=== PATIENT | female | born 1935 | race Caucasian/White ===

== ENCOUNTER 2016-12-10 08:03 | Emergency (ER) | payer MEDICARE, OTHER ==
[2016-12-10] MEDS ORDERED: NITROGLYCERIN 0.4 MG SUBL TABLET As Ordered ONE (08:21)
[2016-12-10] MEDS ORDERED: ASPIRIN 81 MG CHEW TABLET As Ordered ONE (08:21)
[2016-12-10] MEDS ORDERED: ONDANSETRON 4MG/2ML VIAL (J2405) As Ordered ONE (08:25)
[2016-12-10] MEDS ORDERED: MORPHINE 2 MG/ML 1ML SYRINGE As Ordered ONE (08:25)
[2016-12-10 08:36] LABS: BASO % 0.7 % (0.0-1.0); EOS # 0.4 K/mm3 (0.0-0.50); EOS % 8.4 % (0.0-3.0); LARGE UNSTAINED CELL # 0.2 K/mm3 (0.0-0.4); LARGE UNSTAINED CELL % 3.8 % (0.0-4.0); LYMPH # 1.8 K/mm3 (1.5-4.5); LYMPH % 36.7 % (24.0-44.0); MEAN CORPUSCULAR HEMOGLOBIN 29.7 pg (27.0-33.0); MEAN CORPUSCULAR HGB CONC 32.3 g/dl (32.0-36.5); MEAN CORPUSCULAR VOLUME 91.9 fl (80.0-96.0); MONO # 0.4 K/mm3 (0.0-0.8); MONO % 7.5 % (0.0-5.0); NEUTROPHILS # 2.1 K/mm3 (1.8-7.7); NEUTROPHILS % 43.1 % (36.0-66.0); PLATELET COUNT, AUTOMATED 227 k/mm3 (150-450); RED CELL DISTRIBUTION WIDTH 12.5 % (11.5-14.5); WHITE BLOOD COUNT 4.8 K/mm3 (4.0-10.0)
[2016-12-10] MEDS ORDERED: NITROGLYCERIN 2% OINT 1 GM *U/D* PKT As Ordered ONE (08:36)
[2016-12-10 08:40] LABS: INR 0.8
[2016-12-10 09:02] LABS: ANION GAP 7 MEQ/L (8-16); BLOOD UREA NITROGEN 21 MG/DL (7-18); CALCIUM LEVEL 9.3 MG/DL (8.8-10.2); CARBON DIOXIDE LEVEL 31 MEQ/L (21-32); CHLORIDE LEVEL 108 MEQ/L (98-107); CREATININE FOR GFR 0.71 MG/DL (0.55-1.02); GLOMERULAR FILTRATION RATE > 60.0 (>39); GLUCOSE, FASTING 111 MG/DL (83-110); POTASSIUM SERUM 4.1 MEQ/L (3.5-5.1); SODIUM LEVEL 146 MEQ/L (136-145)
[2016-12-10] MEDS ORDERED: HEPARIN SOD (PORCINE) 5000 UNITS/ML VIAL As Ordered ONE (09:07)
[2016-12-10] MEDS ORDERED: CLOPIDOGREL 75 MG TAB As Ordered ONE (09:08)
[2016-12-10] MEDS ORDERED: HEPARIN 25,000 UNITS/250 ML D5W BAG (100 UNITS/ML) As Ordered ONE (09:08)
--- NOTE | 2016-12-10 09:22 | REP ---
Portable chest x-ray: Single view. History: Chest pain. Comparison chest x-ray May 24, 2011. Findings: Mild cardiomegaly is again observed. Left hemidiaphragm remains slightly elevated. Prior sternotomy wires are seen along with EKG monitoring electrodes. The lungs are well inflated and clear. Pulmonary vasculature is not increased. Pleural angles are sharp. There is no evidence of pleural effusion or pulmonary edema. Diffuse osteopenia is noted. Impression: Mild cardiomegaly. Prior sternotomy. Otherwise no acute disease. Signed by Andrey Benton MD 12/10/2016 01:17 P
--- NOTE | 2016-12-10 10:25 | EDDOCDS ---
Nurse's Notes [facility] Name: Mackenzie Toribio Age: 81 yrs Sex: Female : 1935 Arrival Date: 12/10/2016 Time: 08:03 Bed 10 Private MD: Kalie Ferrer Diagnosis: Unstable angina Presentation: 12/10 08:13 Presenting complaint: Patient states: woke with chest pressure at 6AM. Aspirin was not kr3 taken prior to arrival. Adult Sepsis Screening: The patient does not have new or worsening altered mentation. Patient's respiratory rate is less than 22. Systolic blood pressure is greater than 100. Patient has a qSOFA score of 0- Negative Sepsis Screen. Suicide/Homicide risk assessment- the patient denies having any suicidal and/or homicidal ideations and does not present with any other emotional, behavioral or mental health complaints. Status: Patient is not a repair servicer or dependent. Transition of care: patient was not received from another setting of care. 08:13 Acuity: CHANTAL Level 2 kr3 08:13 Method Of Arrival: Wheelchair kr3 08:19 Red Flag criteria, patient assessed and taken directly to a bed. kr3 Triage Assessment: 08:17 General: Appears in no apparent distress, comfortable, Behavior is cooperative. Pain: kr3 Pain currently is 3 out of 10 on a pain scale. At worst was 7 out of 10 on a pain scale. Pain: Aggravated by increased activity. The patient is triaged at the bedside. See Assessment in Nurses Notes section of ED record. Neurological: Level of Consciousness is awake, alert. Cardiovascular: Chest pain is described as mild, radiates Does not radiate. episodes are continuous began 2 hours prior to arrival. Respiratory: Respiratory effort is even, unlabored. Derm: Skin is pink, warm & dry. Historical: - Allergies: no known allergies; - Home Meds: 1. aspirin 81 mg Oral tab 1 tab once daily (Last dose: 12/09/2016) 2. atenolol 25 mg Oral tab 1 tab once daily 3. atorvastatin 40 mg oral tab 1 tab once daily 4. pantoprazole 20 mg oral TbEC 1 tab once daily 5. fosinopril 40 mg oral tab 1 tab once daily 6. multivitamin oral cap daily 7. Fish Oil 1,000 mg Oral cap daily 8. calcium daily 9. Nitrostat Unknown SL (Last dose: 12/10/2016) - PMHx: Heart Attack; Hypertension; High Cholesterol; - PSHx: cardic catherization; - Social history: Smoking status: Patient states was never smoker of tobacco. No barriers to communication noted, The patient speaks fluent Liberian, Speaks appropriately for age. - Family history: Not pertinent. - : The pt / caregiver states he / she is not on anticoagulants. Home medication list is obtained from the patient. - Exposure Risk Screening:: None identified. Screenin:45 Screening information is obtained from the patient. Fall risk: No risks identified. mlb1 Assistance ADL's: requires no assistance with activities of daily living. Abuse/DV Screen: The patient / caregiver reports he/she is: not in a situation that causes fear, pain or injury. Nutritional screening: No deficits noted. Advance Directives: Currently, there is a health care proxy, Dao Toribio (). There is an active DNR order but there is no copy available at this time. home support is adequate. Assessment: 08:23 General: Appears in no apparent distress, comfortable, Behavior is appropriate for age, mlb1 cooperative. Pain: Location: mid-sternal area Pain currently is 3 out of 10 on a pain scale. Cardiovascular: Rhythm is sinus rhythm. Respiratory: Airway is patent Respiratory effort is even, unlabored, Breath sounds are clear bilaterally. Derm: No deficits noted. 08:30 General: Appears in no apparent distress, comfortable, Behavior is appropriate for age, mlb1 cooperative. Pain: Denies pain. Cardiovascular: Rhythm is sinus rhythm. Respiratory: No deficits noted. Derm: No deficits noted. 09:30 General: Appears in no apparent distress, comfortable, Behavior is appropriate for age, mlb1 cooperative. Pain: Denies pain. Respiratory: Airway is patent Respiratory effort is even, unlabored, Breath sounds are clear bilaterally. Derm: No deficits noted. 10:18 General: Appears in no apparent distress, comfortable, Behavior is appropriate for age, mlb1 cooperative. Pain: Denies pain. Neurological: No deficits noted. Cardiovascular: Rhythm is sinus rhythm No ectopy. Respiratory: Airway is patent Respiratory effort is even, unlabored. Derm: Skin is pink, warm & dry. normal. Vital Signs: 08:17 BP 149 / 65; Pulse 64; Resp 16; Pulse Ox 97% on R/A; Weight 46.27 kg (R); Height 4 ft. kr3 11 in. (149.86 cm); 08:18 BP 149 / 65 (auto/); mlb1 08:18 Pulse 62 MON; mlb1 08:21 Temp 97.1(O); cmb 08:27 BP 116 / 56 (auto/); mlb1 08:27 Pulse 68 MON; Pulse Ox 95% ; mlb1 08:30 BP 116 / 56; Pulse 66; Pain 0/10; mlb1 08:33 BP 132 / 61 (auto/); mlb1 08:34 Pulse 62 MON; Pulse Ox 100% ; mlb1 08:48 BP 140 / 68 (auto/); mlb1 08:49 Pulse 60 MON; Pulse Ox 100% ; mlb1 09:05 BP 133 / 61 (auto/); mlb1 09:06 Pulse 64 MON; Pulse Ox 100% ; mlb1 09:18 BP 153 / 68 (auto/); mlb1 09:18 Pulse 68 MON; Pulse Ox 99% ; mlb1 09:33 BP 166 / 79 (auto/); mlb1 09:34 Pulse 62 MON; Pulse Ox 100% ; mlb1 09:34 BP 124 / 57; Pulse 62; Resp 16; Temp 97.3(O); Pulse Ox 100% on 2 lpm NC; Pain 0/10; mlb1 09:48 BP 129 / 75 (auto/); mlb1 09:48 Pulse 62 MON; Pulse Ox 100% ; mlb1 10:02 BP 146 / 66 (auto/); mlb1 10:03 BP 132 / 61 (auto/); mlb1 10:03 Pulse 64 MON; Pulse Ox 100% ; mlb1 10:04 Pulse 64 MON; Pulse Ox 100% ; mlb1 08:17 Body Mass Index 20.60 (46.27 kg, 149.86 cm) kr3 Vitals: 08:17 Log In Time: December 10, 2016 at 08:15. kr3 ED Course: 08:05 Patient visited by William Shepherd. mm15 08:05 Kalie Ferrer is Private Physician. mm15 08:05 Patient moved to Waiting mm15 08:09 Patient moved to 10 kr3 08:11 [facility] jo4 08:11 Jacquelyn Hernandez MD is Attending Physician. jo4 08:13 Patient visited by Jacquelyn Hernandez MD. sd1 08:14 Triage Initiated kr3 08:19 Patient visited by Blessing Schreiber. cmb 08:19 EKG done. (by ED staff). Reviewed by Jacquelyn Hernandez MD. cmb 08:20 B-Type Natiuretic Peptide Sent. mlb1 08:20 Basic Metabolic Profile Sent. mlb1 08:20 CBC with Diff Sent. mlb1 08:20 Cardiac Injury Profile Sent. mlb1 08:20 Prothrombin Time Profile\E\INR Sent. mlb1 08:22 Patient visited by Blessing Schreiber. cmb 08:24 The patient / caregiver is instructed regarding the plan of care and ED course. mlb1 Accompanied by Significant Other, Patient has correct armband on for positive identification. Placed in gown. Bed in low position. Call light in reach. Side rails up X2. front desk monitor on. Pulse ox on. NIBP on. 08:24 Inserted saline lock: 20 gauge in right antecubital area and blood collected. The mlb1 patient tolerated the procedure well. 08:30 Patient visited by Angel Ruggiero, RN. mlb1 08:33 EKG done. (by ED staff). Reviewed by Jacquelyn Hernandez MD. dem1 08:34 Patient visited by Arvin Serrano. dem1 08:46 Patient visited by Angel Ruggiero, RN. mlb1 08:46 No procedures done that require assistance. mlb1 08:56 EKG done. (by ED staff). Reviewed by Jacquelyn Hernandez MD. cmb 08:58 Patient visited by Blessing Schreiber. cmb 09:04 [facility] Payment Agreement was scanned into [employer] and attached to record. jp5 09:06 Inserted saline lock: 18 gauge in left antecubital area The patient tolerated the mlb1 procedure well. 09:31 Patient visited by Angel Ruggiero, RN. mlb1 09:36 portable chest Returned. EDMS Administered Medications: 08:22 Drug: Aspirin 324 mg [aspirin 81 mg chewable tablet (4 tabs)] Route: PO; mlb1 08:23 Drug: Nitrostat 0.4 mg [Nitrostat 0.4 mg sublingual tablet (1 tabs)] Route: Sublingual; b1 08:30 Follow up: BP 116 / 56; Pulse 66 bpm; Pain 0/10 Adult [facility] 08:29 Drug: morphine 2 mg [morphine 2 mg/mL intravenous cartridge (1 mL)] Route: IVP; Site: [facility] right antecubital; 08:29 Drug: Ondansetron 4 mg [ondansetron HCl 2 mg/mL intravenous solution (2 mL)] Route: mlb1 IVP; Site: right antecubital; 08:41 Drug: Nitro-Bid 1 inches [Nitro-Bid 2 % transdermal ointment (1 inches)] Route: mlb1 Transdermal; Site: anterior chest wall; 09:21 Drug: Plavix - Clopidogrel 300 mg [clopidogrel 75 mg tablet (4 tabs)] Route: PO; [facility] 09:22 Drug: heparin (Thrombolytic Protocol, 60 units/kg)) 2776.2 units [heparin (porcine) mlb1 5,000 unit/mL injection solution (0.555 mL)] {Co-Signature: hs1 (Johnna Landis RN).} Route: IVP; Site: right antecubital; 09:22 Drug: heparin (Thrombolytic Protocol, 12 units/kg/hr)) 28155 units [heparin (porcine) mlb1 25,000 unit/250 mL (100 unit/mL) in dextrose 5 % IV] {Co-Signature: hs1 (Johnna Landis RN).} Route: IV; Rate: 12 units/kg/hr; Site: right antecubital; Order Results: Lab Order: B-Type Natiuretic Peptide; SPEC'M 12/10/16 08:18 Test: BRAIN NATRIURETIC PEPTIDE; Value: 161; Range: <100; Abnormal: Above high normal; Units: PG/ML; Status: F Lab Order: Basic Metabolic Profile; SPEC'M 12/10/16 08:18 Test: GLUCOSE, FASTING; Value: 111; Range: 83-110; Abnormal: Above high normal; Units: MG/DL; Status: F Test: BLOOD UREA NITROGEN; Value: 21; Range: 7-18; Abnormal: Above high normal; Units: MG/DL; Status: F Test: CREATININE FOR GFR; Value: 0.71; Range: 0.55-1.02; Units: MG/DL; Status: F Test: GLOMERULAR FILTRATION RATE; Value: > 60.0; Range: >39; Status: F Test: SODIUM LEVEL; Value: 146; Range: 136-145; Abnormal: Above high normal; Units: MEQ/L; Status: F Test: POTASSIUM SERUM; Value: 4.1; Range: 3.5-5.1; Units: MEQ/L; Status: F Test: CHLORIDE LEVEL; Value: 108; Range: 98-107; Abnormal: Above high normal; Units: MEQ/L; Status: F Test: CARBON DIOXIDE LEVEL; Value: 31; Range: 21-32; Units: MEQ/L; Status: F Test: ANION GAP; Value: 7; Range: 8-16; Abnormal: Below low normal; Units: MEQ/L; Status: F Test: CALCIUM LEVEL; Value: 9.3; Range: 8.8-10.2; Units: MG/DL; Status: F Test Note: ; Units are mL/min/1.73 m2 Chronic Kidney Disease Staging per NKF: Stage I & II GFR >=60 Normal to Mildly Decreased Stage III GFR 30-59 Moderately Decreased Stage IV GFR 15-29 Severely Decreased Stage V GFR <15 Very Little GFR Left ESRD GFR <15 on SPINDLE CARVER Lab Order: CBC with Diff; SPEC'M 12/10/16 08:18 Test: WHITE BLOOD COUNT; Value: 4.8; Range: 4.0-10.0; Units: K/mm3; Status: F Test: RED BLOOD COUNT; Value: 4.06; Range: 4.00-5.40; Units: M/mm3; Status: F Test: HEMOGLOBIN; Value: 12.1; Range: 12.0-16.0; Units: g/dl; Status: F Test: HEMATOCRIT; Value: 37.3; Range: 36.0-47.0; Units: %; Status: F Test: MEAN CORPUSCULAR VOLUME; Value: 91.9; Range: 80.0-96.0; Units: fl; Status: F Test: MEAN CORPUSCULAR HEMOGLOBIN; Value: 29.7; Range: 27.0-33.0; Units: pg; Status: F Test: MEAN CORPUSCULAR HGB CONC; Value: 32.3; Range: 32.0-36.5; Units: g/dl; Status: F Test: RED CELL DISTRIBUTION WIDTH; Value: 12.5; Range: 11.5-14.5; Units: %; Status: F Test: PLATELET COUNT, AUTOMATED; Value: 227; Range: 150-450; Units: k/mm3; Status: F Test: NEUTROPHILS %; Value: 43.1; Range: 36.0-66.0; Units: %; Status: F Test: LYMPH %; Value: 36.7; Range: 24.0-44.0; Units: %; Status: F Test: MONO %; Value: 7.5; Range: 0.0-5.0; Abnormal: Above high normal; Units: %; Status: F Test: EOS %; Value: 8.4; Range: 0.0-3.0; Abnormal: Above high normal; Units: %; Status: F Test: BASO %; Value: 0.7; Range: 0.0-1.0; Units: %; Status: F Test: LARGE UNSTAINED CELL %; Value: 3.8; Range: 0.0-4.0; Units: %; Status: F Test: NEUTROPHILS #; Value: 2.1; Range: 1.8-7.7; Units: K/mm3; Status: F Test: LYMPH #; Value: 1.8; Range: 1.5-4.5; Units: K/mm3; Status: F Test: MONO #; Value: 0.4; Range: 0.0-0.8; Units: K/mm3; Status: F Test: EOS #; Value: 0.4; Range: 0.0-0.50; Units: K/mm3; Status: F Test: BASO #; Value: 0.0; Range: 0.0-0.2; Units: K/mm3; Status: F Test: LARGE UNSTAINED CELL #; Value: 0.2; Range: 0.0-0.4; Units: K/mm3; Status: F Lab Order: Cardiac Injury Profile; SPEC'M 12/10/16 08:18 Test: CPK CREATINE PHOSPHOKINASE; Value: 88; Range: 26-192; Units: U/L; Status: F Test: CK-MB VALUE MASS; Value: 3.4; Range: 0.0-3.6; Units: NG/ML; Status: F Test: MB/CK RELATIVE INDEX; Value: 3.86; Range: < OR =4; Status: F Test Note: ; DIAGNOSIS CRITERIA MMB ng/ml Relative Index (RI) NON-AMI < or = 5 N/A TODD ZONE > 5 < or = 4 AMI > 5 > 4 Lab Order: Prothrombin Time Profile\E\INR; SPEC'M 12/10/16 08:18 Test: PROTHROMBIN TIME; Value: 11.2; Range: 12.3-14.5; Abnormal: Below low normal; Units: SECONDS; Status: F Test: INR; Value: 0.80; Status: F Test Note: ; THERAPUTIC HUMAN INR VALUES INDICATIONS NORMAL RANGES PROPHYLAXIS/TREATMENT OF: VENOUS THROMBOSIS 2.0-3.0 PULMONARY EMBOLISM 2.0-3.0 PREVENTION OF SYSTEMIC EMBOLISM FROM: TISSUE HEART VALVES 2.0-3.0 ACUTE MYOCARDIAL INFARCTION 2.0-3.0 VALVULAR HEART DISEASE 2.0-3.0 ATRIAL FIBRILLATION 2.0-3.0 MECHANICAL VALVES(HIGH RISK) 2.5-3.5 RECURRENT MYOCARDIAL INFARCTION 2.5-3.5 Lab Order: Troponin; SPEC'M 12/10/16 08:18 Test: TROPONIN I; Value: 0.42; Range: < 0.10; Abnormal: Above high normal; Units: NG/ML; Status: F Test Note: ; Troponin I Reference Interval for HOTELbeat LOCI: 99th Percentile= 0.00-0.045 ng/ml Risk Stratification: <= 0.10 ng/ml Decreased Risk for Adverse Clinical Events. 0.10-1.50 ng/ml Increased Risk for Adverse Clinical Events. Evaluation of additional criterion and/or repeat testing in 2-6 hours is suggested to rule out myocardial damage. >= 1.50 ng/ml Indicative of Myocardial Injury. Radiology Order: portable chest Test: portable chest REASON FOR EXAMINATION: Chest Pain; Portable chest x-ray: Single view.; ; History: Chest pain.; ; Comparison chest x-ray May 24, 2011.; ; Findings: Mild cardiomegaly is again observed. Left hemidiaphragm remains; slightly elevated. Prior sternotomy wires are seen along with EKG monitoring; electrodes. The lungs are well inflated and clear. Pulmonary vasculature is not; increased. Pleural angles are sharp. There is no evidence of pleural effusion; or pulmonary edema. Diffuse osteopenia is noted.; ; Impression:; ; Mild cardiomegaly. Prior sternotomy. Otherwise no acute disease.; ; ; ; ; Unreviewed; Outcome: 09:06 ER care complete, transfer ordered by Provider. sd1 10:18 Discharge Assessment: Patient awake, alert and oriented x 3. No cognitive and/or mlb1 functional deficits noted. Patient verbalized understanding of disposition instructions. patient administered narcotics - yes. Patient was admitted to the hospital or transferred to another facility. The following High Risk Discharge criteria are identified: None. [facility] to accompanying personnel Amy Richardson, Jorje Rich rotary drill operator, Transfer form completed. x-rays sent w/ patient. Condition: good. No special radiology studies were completed. Property :Personal belongings accompany Pt. 10:24 Patient left the ED. mlb1 Signatures: Dispatcher [employer] EDMS Jacquelyn Hernandez MD MD sd1 Angel Ruggiero RN RN mlb1 Za Cedeño RN RN kr3 Arvin Serrano1 Blessing Schreiber Marlynn mm15 Pilar Dixon jp5 Alicia Moreira DO DO jo4 Johnna Landis RN hs1 MTDSandra
--- NOTE | 2016-12-10 10:25 | EDDOCDS ---
Physician Documentation [facility] Name: Mackenzie Toribio Age: 81 yrs Sex: Female : 1935 Arrival Date: 12/10/2016 Time: 08:03 Bed 10 Private MD: Kalie Ferrer Disposition: 12/10/16 09:06 Transfer ordered to [facility]. Diagnosis is Unstable angina. - Reason for transfer: Higher level of care. - Accepting physician is Dr. Berman. - Condition is Stable. - Problem is new. - Symptoms have improved. Historical: - Allergies: no known allergies; - Home Meds: 1. aspirin 81 mg Oral tab 1 tab once daily (Last dose: 12/09/2016) 2. atenolol 25 mg Oral tab 1 tab once daily 3. atorvastatin 40 mg oral tab 1 tab once daily 4. pantoprazole 20 mg oral TbEC 1 tab once daily 5. fosinopril 40 mg oral tab 1 tab once daily 6. multivitamin oral cap daily 7. Fish Oil 1,000 mg Oral cap daily 8. calcium daily 9. Nitrostat Unknown SL (Last dose: 12/10/2016) - PMHx: Heart Attack; Hypertension; High Cholesterol; - PSHx: cardic catherization; - Social history: Smoking status: Patient states was never smoker of tobacco. No barriers to communication noted, The patient speaks fluent Liberian, Speaks appropriately for age. - Family history: Not pertinent. - : The pt / caregiver states he / she is not on anticoagulants. Home medication list is obtained from the patient. - Exposure Risk Screening:: None identified. Vital Signs: 12/10 08:17 BP 149 / 65; Pulse 64; Resp 16; Pulse Ox 97% on R/A; Weight 46.27 kg / 102.01 lbs (R); kr3 Height 4 ft. 11 in. (149.86 cm); 08:18 BP 149 / 65 (auto/); mlb1 08:18 Pulse 62 MON; mlb1 08:21 Temp 97.1(O); cmb 08:27 BP 116 / 56 (auto/); mlb1 08:27 Pulse 68 MON; Pulse Ox 95% ; mlb1 08:30 BP 116 / 56; Pulse 66; Pain 0/10; mlb1 08:33 BP 132 / 61 (auto/); mlb1 08:34 Pulse 62 MON; Pulse Ox 100% ; mlb1 08:48 BP 140 / 68 (auto/); mlb1 08:49 Pulse 60 MON; Pulse Ox 100% ; mlb1 09:05 BP 133 / 61 (auto/); mlb1 09:06 Pulse 64 MON; Pulse Ox 100% ; mlb1 09:18 BP 153 / 68 (auto/); mlb1 09:18 Pulse 68 MON; Pulse Ox 99% ; mlb1 09:33 BP 166 / 79 (auto/); mlb1 09:34 Pulse 62 MON; Pulse Ox 100% ; mlb1 09:34 BP 124 / 57; Pulse 62; Resp 16; Temp 97.3(O); Pulse Ox 100% on 2 lpm NC; Pain 0/10; mlb1 09:48 BP 129 / 75 (auto/); mlb1 09:48 Pulse 62 MON; Pulse Ox 100% ; mlb1 10:02 BP 146 / 66 (auto/); mlb1 10:03 BP 132 / 61 (auto/); mlb1 10:03 Pulse 64 MON; Pulse Ox 100% ; mlb1 10:04 Pulse 64 MON; Pulse Ox 100% ; mlb1 08:17 Body Mass Index 20.60 (46.27 kg, 149.86 cm) kr3 MDM: 08:11 ECG WITH READING ER PHYS+CARDIAG ordered. EDMS 08:14 Aspirin Chewable Tablet 324 mg PO once ordered. sd1 08:14 Nitrostat 0.4 mg Sublingual every 5 minutes; hold if SBP<90mmHg.Document Pain Score sd1 Response to Each Dose x3 ordered. 08:14 Varnish Thinner/Pulse Ox/q 30 min VS ordered. sd1 08:14 IV Saline Lock ordered. sd1 08:14 Rhythm Strip to chart ordered. sd1 08:14 Undress patient appropriately for examination ordered. sd1 08:15 B-Type Natiuretic Peptide Ordered. EDMS 08:15 Basic Metabolic Profile Ordered. EDMS 08:15 CBC with Diff Ordered. EDMS 08:15 Cardiac Injury Profile Ordered. EDMS 08:15 Prothrombin Time Profile\E\INR Ordered. EDMS 08:15 Troponin Ordered. EDMS 08:16 portable chest Ordered. EDMS 08:21 Repeat EKG (put time details section) ordered. sd1 08:22 morphine 2 mg IVP every 15 minutes; Document pain score/vitals after each dose (Hold if sd1 SBP < 90mmHg) x3 ordered. 08:22 Ondansetron 4 mg IVP once ordered. sd1 08:25 Oxygen 2L via NC, titrate to maintain PO >95% ordered. sd1 08:26 [facility] Order ordered. sd1 08:29 Nitro-Bid Ointment 2 % 1 inches Transdermal once ordered. sd1 08:29 Repeat EKG (put time details section) complete. jml1 08:31 ECG WITH READING ER PHYS ordered. EDMS 08:37 [facility] Order complete. jml1 09:02 heparin (Thrombolytic Protocol, 60 units/kg)) 60 units/kg IVP once; 2760units. Ensure sd1 no Lovenox in past 18hr, labs drawn ordered. 09:02 heparin (Thrombolytic Protocol, 12 units/kg/hr)) 52589 units IV at 12 units/kg/hr once; sd1 dose 550 units/hr. No Lovenox past 18hrs/ draw labs. ordered. 09:02 CBC with Diff Reviewed. sd1 09:02 Prothrombin Time Profile\E\INR Reviewed. sd1 09:04 [facility] [place] Agreement was scanned into [employer] and attached to record. jp5 09:04 Financial registration complete. jp5 09:05 Plavix - Clopidogrel 300 mg PO once ordered. sd1 09:05 Basic Metabolic Profile Reviewed. sd1 09:05 Troponin Reviewed. sd1 09:05 Cardiac Injury Profile Reviewed. sd1 09:12 B-Type Natiuretic Peptide Reviewed. sd1 Administered Medications: 08:22 Drug: Aspirin 324 mg [aspirin 81 mg chewable tablet (4 tabs)] Route: PO; mlb1 08:23 Drug: Nitrostat 0.4 mg [Nitrostat 0.4 mg sublingual tablet (1 tabs)] Route: Sublingual; mlb1 08:30 Follow up: BP 116 / 56; Pulse 66 bpm; Pain 0/10 Adult mlb1 08:29 Drug: morphine 2 mg [morphine 2 mg/mL intravenous cartridge (1 mL)] Route: IVP; Site: mlb1 right antecubital; 08:29 Drug: Ondansetron 4 mg [ondansetron HCl 2 mg/mL intravenous solution (2 mL)] Route: mlb1 IVP; Site: right antecubital; 08:41 Drug: Nitro-Bid 1 inches [Nitro-Bid 2 % transdermal ointment (1 inches)] Route: mlb1 Transdermal; Site: anterior chest wall; 09:21 Drug: Plavix - Clopidogrel 300 mg [clopidogrel 75 mg tablet (4 tabs)] Route: PO; mlb1 09:22 Drug: heparin (Thrombolytic Protocol, 60 units/kg)) 2776.2 units [heparin (porcine) mlb1 5,000 unit/mL injection solution (0.555 mL)] {Co-Signature: hs1 (Johnna Landis RN).} Route: IVP; Site: right antecubital; 09:22 Drug: heparin (Thrombolytic Protocol, 12 units/kg/hr)) 12382 units [heparin (porcine) mlb1 25,000 unit/250 mL (100 unit/mL) in dextrose 5 % IV] {Co-Signature: hs1 (Johnna Landis RN).} Route: IV; Rate: 12 units/kg/hr; Site: right antecubital; Signatures: Dispatcher [employer] EDJacquelyn Saldana MD MD sd1 Angel Ruggiero RN RN mlb1 Za Cedeño RN RN kr3 Nestor Jones Jennalee jp5 Johnna Landis RN hs1 The chart was reviewed and I authenticate all verbal orders and agree with the evaluation and treatment provided.Attachments: 09:04 [facility] Payment Agreement jp5 MTDD
--- NOTE | 2016-12-10 20:21 | ECGEPIP ---
Stationary ECG Study 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
--- NOTE | 2016-12-10 20:22 | ECGEPIP ---
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
--- NOTE | 2016-12-12 11:25 | EDDOCDS ---
Physician Documentation [facility] Name: Mackenzie Toribio Age: 81 yrs Sex: Female : 1935 Arrival Date: 12/10/2016 Time: 08:03 Bed 10 Private MD: Kalie Ferrer Disposition: 12/10/16 09:06 Transfer ordered to [facility]. Diagnosis is Unstable angina. - Reason for transfer: Higher level of care. - Accepting physician is Dr. Berman. - Condition is Stable. - Problem is new. - Symptoms have improved. Historical: - Allergies: no known allergies; - Home Meds: 1. aspirin 81 mg Oral tab 1 tab once daily (Last dose: 12/09/2016) 2. atenolol 25 mg Oral tab 1 tab once daily 3. atorvastatin 40 mg oral tab 1 tab once daily 4. pantoprazole 20 mg oral TbEC 1 tab once daily 5. fosinopril 40 mg oral tab 1 tab once daily 6. multivitamin oral cap daily 7. Fish Oil 1,000 mg Oral cap daily 8. calcium daily 9. Nitrostat Unknown SL (Last dose: 12/10/2016) - PMHx: Heart Attack; Hypertension; High Cholesterol; - PSHx: cardic catherization; - Social history: Smoking status: Patient states was never smoker of tobacco. No barriers to communication noted, The patient speaks fluent Eritrean, Speaks appropriately for age. - Family history: Not pertinent. - : The pt / caregiver states he / she is not on anticoagulants. Home medication list is obtained from the patient. - Exposure Risk Screening:: None identified. Vital Signs: 12/10 08:17 BP 149 / 65; Pulse 64; Resp 16; Pulse Ox 97% on R/A; Weight 46.27 kg / 102.01 lbs (R); kr3 Height 4 ft. 11 in. (149.86 cm); 08:18 BP 149 / 65 (auto/); mlb1 08:18 Pulse 62 MON; mlb1 08:21 Temp 97.1(O); cmb 08:27 BP 116 / 56 (auto/); mlb1 08:27 Pulse 68 MON; Pulse Ox 95% ; mlb1 08:30 BP 116 / 56; Pulse 66; Pain 0/10; mlb1 08:33 BP 132 / 61 (auto/); mlb1 08:34 Pulse 62 MON; Pulse Ox 100% ; mlb1 08:48 BP 140 / 68 (auto/); mlb1 08:49 Pulse 60 MON; Pulse Ox 100% ; mlb1 09:05 BP 133 / 61 (auto/); mlb1 09:06 Pulse 64 MON; Pulse Ox 100% ; mlb1 09:18 BP 153 / 68 (auto/); mlb1 09:18 Pulse 68 MON; Pulse Ox 99% ; mlb1 09:33 BP 166 / 79 (auto/); mlb1 09:34 Pulse 62 MON; Pulse Ox 100% ; mlb1 09:34 BP 124 / 57; Pulse 62; Resp 16; Temp 97.3(O); Pulse Ox 100% on 2 lpm NC; Pain 0/10; mlb1 09:48 BP 129 / 75 (auto/); mlb1 09:48 Pulse 62 MON; Pulse Ox 100% ; mlb1 10:02 BP 146 / 66 (auto/); mlb1 10:03 BP 132 / 61 (auto/); mlb1 10:03 Pulse 64 MON; Pulse Ox 100% ; mlb1 10:04 Pulse 64 MON; Pulse Ox 100% ; mlb1 08:17 Body Mass Index 20.60 (46.27 kg, 149.86 cm) kr3 MDM: 08:11 ECG WITH READING ER PHYS+CARDIAG ordered. EDMS 08:14 Aspirin Chewable Tablet 324 mg PO once ordered. sd1 08:14 Nitrostat 0.4 mg Sublingual every 5 minutes; hold if SBP<90mmHg.Document Pain Score sd1 Response to Each Dose x3 ordered. 08:14 Brand Lead/Pulse Ox/q 30 min VS ordered. sd1 08:14 IV Saline Lock ordered. sd1 08:14 Rhythm Strip to chart ordered. sd1 08:14 Undress patient appropriately for examination ordered. sd1 08:15 B-Type Natiuretic Peptide Ordered. EDMS 08:15 Basic Metabolic Profile Ordered. EDMS 08:15 CBC with Diff Ordered. EDMS 08:15 Cardiac Injury Profile Ordered. EDMS 08:15 Prothrombin Time Profile\E\INR Ordered. EDMS 08:15 Troponin Ordered. EDMS 08:16 portable chest Ordered. EDMS 08:21 Repeat EKG (put time details section) ordered. sd1 08:22 morphine 2 mg IVP every 15 minutes; Document pain score/vitals after each dose (Hold if sd1 SBP < 90mmHg) x3 ordered. 08:22 Ondansetron 4 mg IVP once ordered. sd1 08:25 Oxygen 2L via AK, titrate to maintain PO >95% ordered. sd1 08:26 [facility] [employer] Order ordered. sd1 08:29 Nitro-Bid Ointment 2 % 1 inches Transdermal once ordered. sd1 08:29 Repeat EKG (put time details section) complete. jml1 08:31 ECG WITH READING ER PHYS ordered. EDMS 08:37 [facility] [employer] Order complete. jml1 09:02 heparin (Thrombolytic Protocol, 60 units/kg)) 60 units/kg IVP once; 2760units. Ensure sd1 no Lovenox in past 18hr, labs drawn ordered. 09:02 heparin (Thrombolytic Protocol, 12 units/kg/hr)) 11484 units IV at 12 units/kg/hr once; sd1 dose 550 units/hr. No Lovenox past 18hrs/ draw labs. ordered. 09:02 CBC with Diff Reviewed. sd1 09:02 Prothrombin Time Profile\E\INR Reviewed. sd1 09:04 [facility] Payment Agreement was scanned into Linguastat and attached to record. jp5 09:04 Financial registration complete. jp5 09:05 Plavix - Clopidogrel 300 mg PO once ordered. sd1 09:05 Basic Metabolic Profile Reviewed. sd1 09:05 Troponin Reviewed. sd1 09:05 Cardiac Injury Profile Reviewed. sd1 09:12 B-Type Natiuretic Peptide Reviewed. sd1 14:32 T-Sheet-- Draft Copy was scanned into Linguastat and attached to record. gb 14:32 ECG/EKG was scanned into Lingu[employer]at and attached to record. gb Administered Medications: 08:22 Drug: Aspirin 324 mg [aspirin 81 mg chewable tablet (4 tabs)] Route: PO; mlb1 08:23 Drug: Nitrostat 0.4 mg [Nitrostat 0.4 mg sublingual tablet (1 tabs)] Route: Sublingual; mlb1 08:30 Follow up: BP 116 / 56; Pulse 66 bpm; Pain 0/10 Adult mlb1 08:29 Drug: morphine 2 mg [morphine 2 mg/mL intravenous cartridge (1 mL)] Route: IVP; Site: mlb1 right antecubital; 08:29 Drug: Ondansetron 4 mg [ondansetron HCl 2 mg/mL intravenous solution (2 mL)] Route: mlb1 IVP; Site: right antecubital; 08:41 Drug: Nitro-Bid 1 inches [Nitro-Bid 2 % transdermal ointment (1 inches)] Route: mlb1 Transdermal; Site: anterior chest wall; 09:21 Drug: Plavix - Clopidogrel 300 mg [clopidogrel 75 mg tablet (4 tabs)] Route: PO; mlb1 09:22 Drug: heparin (Thrombolytic Protocol, 60 units/kg)) 2776.2 units [heparin (porcine) mlb1 5,000 unit/mL injection solution (0.555 mL)] {Co-Signature: hs1 (Johnna Landis RN).} Route: IVP; Site: right antecubital; 09:22 Drug: heparin (Thrombolytic Protocol, 12 units/kg/hr)) 03362 units [heparin (porcine) mlb1 25,000 unit/250 mL (100 unit/mL) in dextrose 5 % IV] {Co-Signature: hs1 (Johnna Landis RN).} Route: IV; Rate: 12 units/kg/hr; Site: right antecubital; Signatures: Dispatcher MedHost Jacquelyn Vieira MD MD sd1 Kusum Taylor, Reg Reg gb Angel Ruggiero RN RN mlb1 Za Cedeño RN RN [email or web address] Nestor Jones Jennalee jp5 Johnna Landis RN hs1 The chart was reviewed and I authenticate all verbal orders and agree with the evaluation and treatment provided.Attachments: 09:04 [facility] Payment Agreement jp5 14:32 T-Sheet-- Draft Copy gb 14:32 ECG/EKG gb Chart Complete MTDD
--- NOTE | 2016-12-12 11:25 | EDDOCDS ---
Nurse's Notes [facility] Name: Mackenzie Toribio Age: 81 yrs Sex: Female : 1935 Arrival Date: 12/10/2016 Time: 08:03 Bed 10 Private MD: Kalie Ferrer Diagnosis: Unstable angina Presentation: 12/10 08:13 Presenting complaint: Patient states: woke with chest pressure at 6AM. Aspirin was not kr3 taken prior to arrival. Adult Sepsis Screening: The patient does not have new or worsening altered mentation. Patient's respiratory rate is less than 22. Systolic blood pressure is greater than 100. Patient has a qSOFA score of 0- Negative Sepsis Screen. Suicide/Homicide risk assessment- the patient denies having any suicidal and/or homicidal ideations and does not present with any other emotional, behavioral or mental health complaints. Status: Patient is not a family services assistant or dependent. Transition of care: patient was not received from another setting of care. 08:13 Acuity: CHANTAL Level 2 kr3 08:13 Method Of Arrival: Wheelchair kr3 08:19 Red Flag criteria, patient assessed and taken directly to a bed. kr3 Triage Assessment: 08:17 General: Appears in no apparent distress, comfortable, Behavior is cooperative. Pain: kr3 Pain currently is 3 out of 10 on a pain scale. At worst was 7 out of 10 on a pain scale. Pain: Aggravated by increased activity. The patient is triaged at the bedside. See Assessment in Nurses Notes section of ED record. Neurological: Level of Consciousness is awake, alert. Cardiovascular: Chest pain is described as mild, radiates Does not radiate. episodes are continuous began 2 hours prior to arrival. Respiratory: Respiratory effort is even, unlabored. Derm: Skin is pink, warm & dry. Historical: - Allergies: no known allergies; - Home Meds: 1. aspirin 81 mg Oral tab 1 tab once daily (Last dose: 12/09/2016) 2. atenolol 25 mg Oral tab 1 tab once daily 3. atorvastatin 40 mg oral tab 1 tab once daily 4. pantoprazole 20 mg oral TbEC 1 tab once daily 5. fosinopril 40 mg oral tab 1 tab once daily 6. multivitamin oral cap daily 7. Fish Oil 1,000 mg Oral cap daily 8. calcium daily 9. Nitrostat Unknown SL (Last dose: 12/10/2016) - PMHx: Heart Attack; Hypertension; High Cholesterol; - PSHx: cardic catherization; - Social history: Smoking status: Patient states was never smoker of tobacco. No barriers to communication noted, The patient speaks fluent Turkmen, Speaks appropriately for age. - Family history: Not pertinent. - : The pt / caregiver states he / she is not on anticoagulants. Home medication list is obtained from the patient. - Exposure Risk Screening:: None identified. Screenin:45 Screening information is obtained from the patient. Fall risk: No risks identified. mlb1 Assistance ADL's: requires no assistance with activities of daily living. Abuse/DV Screen: The patient / caregiver reports he/she is: not in a situation that causes fear, pain or injury. Nutritional screening: No deficits noted. Advance Directives: Currently, there is a health care proxy, Dao Toribio (). There is an active DNR order but there is no copy available at this time. home support is adequate. Assessment: 08:23 General: Appears in no apparent distress, comfortable, Behavior is appropriate for age, mlb1 cooperative. Pain: Location: mid-sternal area Pain currently is 3 out of 10 on a pain scale. Cardiovascular: Rhythm is sinus rhythm. Respiratory: Airway is patent Respiratory effort is even, unlabored, Breath sounds are clear bilaterally. Derm: No deficits noted. 08:30 General: Appears in no apparent distress, comfortable, Behavior is appropriate for age, mlb1 cooperative. Pain: Denies pain. Cardiovascular: Rhythm is sinus rhythm. Respiratory: No deficits noted. Derm: No deficits noted. 09:30 General: Appears in no apparent distress, comfortable, Behavior is appropriate for age, mlb1 cooperative. Pain: Denies pain. Respiratory: Airway is patent Respiratory effort is even, unlabored, Breath sounds are clear bilaterally. Derm: No deficits noted. 10:18 General: Appears in no apparent distress, comfortable, Behavior is appropriate for age, mlb1 cooperative. Pain: Denies pain. Neurological: No deficits noted. Cardiovascular: Rhythm is sinus rhythm No ectopy. Respiratory: Airway is patent Respiratory effort is even, unlabored. Derm: Skin is pink, warm & dry. normal. Vital Signs: 08:17 BP 149 / 65; Pulse 64; Resp 16; Pulse Ox 97% on R/A; Weight 46.27 kg (R); Height 4 ft. kr3 11 in. (149.86 cm); 08:18 BP 149 / 65 (auto/); mlb1 08:18 Pulse 62 MON; mlb1 08:21 Temp 97.1(O); cmb 08:27 BP 116 / 56 (auto/); mlb1 08:27 Pulse 68 MON; Pulse Ox 95% ; mlb1 08:30 BP 116 / 56; Pulse 66; Pain 0/10; mlb1 08:33 BP 132 / 61 (auto/); mlb1 08:34 Pulse 62 MON; Pulse Ox 100% ; mlb1 08:48 BP 140 / 68 (auto/); mlb1 08:49 Pulse 60 MON; Pulse Ox 100% ; mlb1 09:05 BP 133 / 61 (auto/); mlb1 09:06 Pulse 64 MON; Pulse Ox 100% ; mlb1 09:18 BP 153 / 68 (auto/); mlb1 09:18 Pulse 68 MON; Pulse Ox 99% ; mlb1 09:33 BP 166 / 79 (auto/); mlb1 09:34 Pulse 62 MON; Pulse Ox 100% ; mlb1 09:34 BP 124 / 57; Pulse 62; Resp 16; Temp 97.3(O); Pulse Ox 100% on 2 lpm NC; Pain 0/10; mlb1 09:48 BP 129 / 75 (auto/); mlb1 09:48 Pulse 62 MON; Pulse Ox 100% ; mlb1 10:02 BP 146 / 66 (auto/); mlb1 10:03 BP 132 / 61 (auto/); mlb1 10:03 Pulse 64 MON; Pulse Ox 100% ; mlb1 10:04 Pulse 64 MON; Pulse Ox 100% ; mlb1 08:17 Body Mass Index 20.60 (46.27 kg, 149.86 cm) kr3 Vitals: 08:17 Log In Time: December 10, 2016 at 08:15. kr3 ED Course: 08:05 Patient visited by William Shepherd. mm15 08:05 Kalie Ferrer is Private Physician. mm15 08:05 Patient moved to Waiting mm15 08:09 Patient moved to 10 kr3 08:11 [facility] jo4 08:11 Jacquelyn Hernandez MD is Attending Physician. jo4 08:13 Patient visited by Jacquelyn Hernandez MD. sd1 08:14 Triage Initiated kr3 08:19 Patient visited by Blessing Schreiber. cmb 08:19 EKG done. (by ED staff). Reviewed by Jacquelyn Hernandez MD. cmb 08:20 B-Type Natiuretic Peptide Sent. mlb1 08:20 Basic Metabolic Profile Sent. mlb1 08:20 CBC with Diff Sent. mlb1 08:20 Cardiac Injury Profile Sent. mlb1 08:20 Prothrombin Time Profile\E\INR Sent. mlb1 08:22 Patient visited by Blessing Schreiber. cmb 08:24 The patient / caregiver is instructed regarding the plan of care and ED course. mlb1 Accompanied by Significant Other, Patient has correct armband on for positive identification. Placed in gown. Bed in low position. Call light in reach. Side rails up X2. monitor and storage bin tender on. Pulse ox on. NIBP on. 08:24 Inserted saline lock: 20 gauge in right antecubital area and blood collected. The mlb1 patient tolerated the procedure well. 08:30 Patient visited by Angel Ruggiero, RN. mlb1 08:33 EKG done. (by ED staff). Reviewed by Jacquelyn Hernandez MD. dem1 08:34 Patient visited by Arvin Serrano. dem1 08:46 Patient visited by Angel Ruggiero, RN. mlb1 08:46 No procedures done that require assistance. mlb1 08:56 EKG done. (by ED staff). Reviewed by Jacquelyn Hernandez MD. cmb 08:58 Patient visited by Blessing Schreiber. cmb 09:04 [facility] Payment Agreement was scanned into Vizy and attached to record. jp5 09:06 Inserted saline lock: 18 gauge in left antecubital area The patient tolerated the mlb1 procedure well. 09:31 Patient visited by Angel Ruggiero, RN. mlb1 09:36 portable chest Returned. EDMS 14:32 T-Sheet-- Draft Copy was scanned into Vizy and attached to record. gb 14:32 ECG/EKG was scanned into Electrikus[employer] and attached to record. gb 21:16 EKG-ADULT Returned. EDMS 21:16 ECG WITH READING ER PHYS Returned. EDMS Administered Medications: 08:22 Drug: Aspirin 324 mg [aspirin 81 mg chewable tablet (4 tabs)] Route: PO; mlb1 08:23 Drug: Nitrostat 0.4 mg [Nitrostat 0.4 mg sublingual tablet (1 tabs)] Route: Sublingual; mlb1 08:30 Follow up: BP 116 / 56; Pulse 66 bpm; Pain 0/10 Adult mlb1 08:29 Drug: morphine 2 mg [morphine 2 mg/mL intravenous cartridge (1 mL)] Route: IVP; Site: mlb1 right antecubital; 08:29 Drug: Ondansetron 4 mg [ondansetron HCl 2 mg/mL intravenous solution (2 mL)] Route: mlb1 IVP; Site: right antecubital; 08:41 Drug: Nitro-Bid 1 inches [Nitro-Bid 2 % transdermal ointment (1 inches)] Route: mlb1 Transdermal; Site: anterior chest wall; 09:21 Drug: Plavix - Clopidogrel 300 mg [clopidogrel 75 mg tablet (4 tabs)] Route: PO; mlb1 09:22 Drug: heparin (Thrombolytic Protocol, 60 units/kg)) 2776.2 units [heparin (porcine) mlb1 5,000 unit/mL injection solution (0.555 mL)] {Co-Signature: hs1 (Johnna Landis RN).} Route: IVP; Site: right antecubital; 09:22 Drug: heparin (Thrombolytic Protocol, 12 units/kg/hr)) 54146 units [heparin (porcine) mlb1 25,000 unit/250 mL (100 unit/mL) in dextrose 5 % IV] {Co-Signature: hs1 (Johnna Landis RN).} Route: IV; Rate: 12 units/kg/hr; Site: right antecubital; Order Results: Lab Order: B-Type Natiuretic Peptide; SPEC'M 12/10/16 08:18 Test: BRAIN NATRIURETIC PEPTIDE; Value: 161; Range: <100; Abnormal: Above high normal; Units: PG/ML; Status: F Lab Order: Basic Metabolic Profile; SPEC'M 12/10/16 08:18 Test: GLUCOSE, FASTING; Value: 111; Range: 83-110; Abnormal: Above high normal; Units: MG/DL; Status: F Test: BLOOD UREA NITROGEN; Value: 21; Range: 7-18; Abnormal: Above high normal; Units: MG/DL; Status: F Test: CREATININE FOR GFR; Value: 0.71; Range: 0.55-1.02; Units: MG/DL; Status: F Test: GLOMERULAR FILTRATION RATE; Value: > 60.0; Range: >39; Status: F Test: SODIUM LEVEL; Value: 146; Range: 136-145; Abnormal: Above high normal; Units: MEQ/L; Status: F Test: POTASSIUM SERUM; Value: 4.1; Range: 3.5-5.1; Units: MEQ/L; Status: F Test: CHLORIDE LEVEL; Value: 108; Range: 98-107; Abnormal: Above high normal; Units: MEQ/L; Status: F Test: CARBON DIOXIDE LEVEL; Value: 31; Range: 21-32; Units: MEQ/L; Status: F Test: ANION GAP; Value: 7; Range: 8-16; Abnormal: Below low normal; Units: MEQ/L; Status: F Test: CALCIUM LEVEL; Value: 9.3; Range: 8.8-10.2; Units: MG/DL; Status: F Test Note: ; Units are mL/min/1.73 m2 Chronic Kidney Disease Staging per NKF: Stage I & II GFR >=60 Normal to Mildly Decreased Stage III GFR 30-59 Moderately Decreased Stage IV GFR 15-29 Severely Decreased Stage V GFR <15 Very Little GFR Left ESRD GFR <15 on STILL CLEANER TUBE Lab Order: CBC with Diff; SPEC'M 12/10/16 08:18 Test: WHITE BLOOD COUNT; Value: 4.8; Range: 4.0-10.0; Units: K/mm3; Status: F Test: RED BLOOD COUNT; Value: 4.06; Range: 4.00-5.40; Units: M/mm3; Status: F Test: HEMOGLOBIN; Value: 12.1; Range: 12.0-16.0; Units: g/dl; Status: F Test: HEMATOCRIT; Value: 37.3; Range: 36.0-47.0; Units: %; Status: F Test: MEAN CORPUSCULAR VOLUME; Value: 91.9; Range: 80.0-96.0; Units: fl; Status: F Test: MEAN CORPUSCULAR HEMOGLOBIN; Value: 29.7; Range: 27.0-33.0; Units: pg; Status: F Test: MEAN CORPUSCULAR HGB CONC; Value: 32.3; Range: 32.0-36.5; Units: g/dl; Status: F Test: RED CELL DISTRIBUTION WIDTH; Value: 12.5; Range: 11.5-14.5; Units: %; Status: F Test: PLATELET COUNT, AUTOMATED; Value: 227; Range: 150-450; Units: k/mm3; Status: F Test: NEUTROPHILS %; Value: 43.1; Range: 36.0-66.0; Units: %; Status: F Test: LYMPH %; Value: 36.7; Range: 24.0-44.0; Units: %; Status: F Test: MONO %; Value: 7.5; Range: 0.0-5.0; Abnormal: Above high normal; Units: %; Status: F Test: EOS %; Value: 8.4; Range: 0.0-3.0; Abnormal: Above high normal; Units: %; Status: F Test: BASO %; Value: 0.7; Range: 0.0-1.0; Units: %; Status: F Test: LARGE UNSTAINED CELL %; Value: 3.8; Range: 0.0-4.0; Units: %; Status: F Test: NEUTROPHILS #; Value: 2.1; Range: 1.8-7.7; Units: K/mm3; Status: F Test: LYMPH #; Value: 1.8; Range: 1.5-4.5; Units: K/mm3; Status: F Test: MONO #; Value: 0.4; Range: 0.0-0.8; Units: K/mm3; Status: F Test: EOS #; Value: 0.4; Range: 0.0-0.50; Units: K/mm3; Status: F Test: BASO #; Value: 0.0; Range: 0.0-0.2; Units: K/mm3; Status: F Test: LARGE UNSTAINED CELL #; Value: 0.2; Range: 0.0-0.4; Units: K/mm3; Status: F Lab Order: Cardiac Injury Profile; SPEC'M 12/10/16 08:18 Test: CPK CREATINE PHOSPHOKINASE; Value: 88; Range: 26-192; Units: U/L; Status: F Test: CK-MB VALUE MASS; Value: 3.4; Range: 0.0-3.6; Units: NG/ML; Status: F Test: MB/CK RELATIVE INDEX; Value: 3.86; Range: < OR =4; Status: F Test Note: ; DIAGNOSIS CRITERIA MMB ng/ml Relative Index (RI) NON-AMI < or = 5 N/A TODD ZONE > 5 < or = 4 AMI > 5 > 4 Lab Order: Prothrombin Time Profile\E\INR; SPEC'M 12/10/16 08:18 Test: PROTHROMBIN TIME; Value: 11.2; Range: 12.3-14.5; Abnormal: Below low normal; Units: SECONDS; Status: F Test: INR; Value: 0.80; Status: F Test Note: ; THERAPUTIC HUMAN INR VALUES INDICATIONS NORMAL RANGES PROPHYLAXIS/TREATMENT OF: VENOUS THROMBOSIS 2.0-3.0 PULMONARY EMBOLISM 2.0-3.0 PREVENTION OF SYSTEMIC EMBOLISM FROM: TISSUE HEART VALVES 2.0-3.0 ACUTE MYOCARDIAL INFARCTION 2.0-3.0 VALVULAR HEART DISEASE 2.0-3.0 ATRIAL FIBRILLATION 2.0-3.0 MECHANICAL VALVES(HIGH RISK) 2.5-3.5 RECURRENT MYOCARDIAL INFARCTION 2.5-3.5 Lab Order: Troponin; SPEC'M 12/10/16 08:18 Test: TROPONIN I; Value: 0.42; Range: < 0.10; Abnormal: Above high normal; Units: NG/ML; Status: F Test Note: ; Troponin I Reference Interval for [employer] LOCI: 99th Percentile= 0.00-0.045 ng/ml Risk Stratification: <= 0.10 ng/ml Decreased Risk for Adverse Clinical Events. 0.10-1.50 ng/ml Increased Risk for Adverse Clinical Events. Evaluation of additional criterion and/or repeat testing in 2-6 hours is suggested to rule out myocardial damage. >= 1.50 ng/ml Indicative of Myocardial Injury. 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; ; Comparison chest x-ray May 24, 2011.; ; Findings: Mild cardiomegaly is again observed. Left hemidiaphragm remains; slightly elevated. Prior sternotomy wires are seen along with EKG monitoring; electrodes. The lungs are well inflated and clear. Pulmonary vasculature is not; increased. Pleural angles are sharp. There is no evidence of pleural effusion; or pulmonary edema. Diffuse osteopenia is noted.; ; Impression:; ; Mild cardiomegaly. Prior sternotomy. 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 sd1 10:18 Discharge Assessment: Patient awake, alert and oriented x 3. No cognitive and/or mlb1 functional deficits noted. Patient verbalized understanding of disposition instructions. patient administered narcotics - yes. Patient was admitted to the hospital or transferred to another facility. The following High Risk Discharge criteria are identified: None. Transferred to [facility]. by EMS ground [facility] ambulance report to accompanying personnel Jorje Jacome dry end tester, Transfer form completed. x-rays sent w/ patient. Condition: good. No special radiology studies were completed. Property :Personal belongings accompany Pt. 10:24 Patient left the ED. mlb1 Signatures: Dispatcher [employer] EDMS Jacquelyn Hernandez MD MD sd1 Kusum Taylor, Reg Reg Angel Ruggiero RN RN mlb1 Za CedeñoRN RN kr3 Arvin Serrano1 Blessing Schreiber Marlynn mm15 Pilar Dixon Jane, DO DO jo4 Johnna Landis RN hs1 Chart Complete MTDD
--- NOTE | 2016-12-12 11:25 | EDDOCDS ---
Physician Documentation [facility] Name: Mackenzie Toribio Age: 81 yrs Sex: Female : 1935 Arrival Date: 12/10/2016 Time: 08:03 Bed 10 Private MD: Kalie Ferrer Disposition: 12/10/16 09:06 Transfer ordered to [facility]. Diagnosis is Unstable angina. - Reason for transfer: Higher level of care. - Accepting physician is Dr. Berman. - Condition is Stable. - Problem is new. - Symptoms have improved. Historical: - Allergies: no known allergies; - Home Meds: 1. aspirin 81 mg Oral tab 1 tab once daily (Last dose: 12/09/2016) 2. atenolol 25 mg Oral tab 1 tab once daily 3. atorvastatin 40 mg oral tab 1 tab once daily 4. pantoprazole 20 mg oral TbEC 1 tab once daily 5. fosinopril 40 mg oral tab 1 tab once daily 6. multivitamin oral cap daily 7. Fish Oil 1,000 mg Oral cap daily 8. calcium daily 9. Nitrostat Unknown SL (Last dose: 12/10/2016) - PMHx: Heart Attack; Hypertension; High Cholesterol; - PSHx: cardic catherization; - Social history: Smoking status: Patient states was never smoker of tobacco. No barriers to communication noted, The patient speaks fluent [place], Speaks appropriately for age. - Family history: Not pertinent. - : The pt / caregiver states he / she is not on anticoagulants. Home medication list is obtained from the patient. - Exposure Risk Screening:: None identified. Vital Signs: 12/10 08:17 BP 149 / 65; Pulse 64; Resp 16; Pulse Ox 97% on R/A; Weight 46.27 kg / 102.01 lbs (R); kr3 Height 4 ft. 11 in. (149.86 cm); 08:18 BP 149 / 65 (auto/); mlb1 08:18 Pulse 62 MON; mlb1 08:21 Temp 97.1(O); cmb 08:27 BP 116 / 56 (auto/); mlb1 08:27 Pulse 68 MON; Pulse Ox 95% ; mlb1 08:30 BP 116 / 56; Pulse 66; Pain 0/10; mlb1 08:33 BP 132 / 61 (auto/); mlb1 08:34 Pulse 62 MON; Pulse Ox 100% ; mlb1 08:48 BP 140 / 68 (auto/); mlb1 08:49 Pulse 60 MON; Pulse Ox 100% ; mlb1 09:05 BP 133 / 61 (auto/); mlb1 09:06 Pulse 64 MON; Pulse Ox 100% ; mlb1 09:18 BP 153 / 68 (auto/); mlb1 09:18 Pulse 68 MON; Pulse Ox 99% ; mlb1 09:33 BP 166 / 79 (auto/); mlb1 09:34 Pulse 62 MON; Pulse Ox 100% ; mlb1 09:34 BP 124 / 57; Pulse 62; Resp 16; Temp 97.3(O); Pulse Ox 100% on 2 lpm NC; Pain 0/10; mlb1 09:48 BP 129 / 75 (auto/); mlb1 09:48 Pulse 62 MON; Pulse Ox 100% ; mlb1 10:02 BP 146 / 66 (auto/); mlb1 10:03 BP 132 / 61 (auto/); mlb1 10:03 Pulse 64 MON; Pulse Ox 100% ; mlb1 10:04 Pulse 64 MON; Pulse Ox 100% ; mlb1 08:17 Body Mass Index 20.60 (46.27 kg, 149.86 cm) kr3 MDM: 08:11 ECG WITH READING ER PHYS+CARDIAG ordered. EDMS 08:14 Aspirin Chewable Tablet 324 mg PO once ordered. sd1 08:14 Nitrostat 0.4 mg Sublingual every 5 minutes; hold if SBP<90mmHg.Document Pain Score sd1 Response to Each Dose x3 ordered. 08:14 Reverse Engineer/Pulse Ox/q 30 min VS ordered. sd1 08:14 IV Saline Lock ordered. sd1 08:14 Rhythm Strip to chart ordered. sd1 08:14 Undress patient appropriately for examination ordered. sd1 08:15 B-Type Natiuretic Peptide Ordered. EDMS 08:15 Basic Metabolic Profile Ordered. EDMS 08:15 CBC with Diff Ordered. EDMS 08:15 Cardiac Injury Profile Ordered. EDMS 08:15 Prothrombin Time Profile\E\INR Ordered. EDMS 08:15 Troponin Ordered. EDMS 08:16 portable chest Ordered. EDMS 08:21 Repeat EKG (put time details section) ordered. sd1 08:22 morphine 2 mg IVP every 15 minutes; Document pain score/vitals after each dose (Hold if sd1 SBP < 90mmHg) x3 ordered. 08:22 Ondansetron 4 mg IVP once ordered. sd1 08:25 Oxygen 2L via UT, titrate to maintain PO >95% ordered. sd1 08:26 [facility] Order ordered. sd1 08:29 Nitro-Bid Ointment 2 % 1 inches Transdermal once ordered. sd1 08:29 Repeat EKG (put time details section) complete. jml1 08:31 ECG WITH READING ER PHYS ordered. EDMS 08:37 [facility] Order complete. jml1 09:02 heparin (Thrombolytic Protocol, 60 units/kg)) 60 units/kg IVP once; 2760units. Ensure sd1 no Lovenox in past 18hr, labs drawn ordered. 09:02 heparin (Thrombolytic Protocol, 12 units/kg/hr)) 09308 units IV at 12 units/kg/hr once; sd1 dose 550 units/hr. No Lovenox past 18hrs/ draw labs. ordered. 09:02 CBC with Diff Reviewed. sd1 09:02 Prothrombin Time Profile\E\INR Reviewed. sd1 09:04 [facility] Payment Agreement was scanned into [employer] and attached to record. jp5 09:04 Financial registration complete. jp5 09:05 Plavix - Clopidogrel 300 mg PO once ordered. sd1 09:05 Basic Metabolic Profile Reviewed. sd1 09:05 Troponin Reviewed. sd1 09:05 Cardiac Injury Profile Reviewed. sd1 09:12 B-Type Natiuretic Peptide Reviewed. sd1 14:32 T-Sheet-- Draft Copy was scanned into [employer] and attached to record. gb 14:32 ECG/EKG was scanned into [employer] and attached to record. gb Administered Medications: 08:22 Drug: Aspirin 324 mg [aspirin 81 mg chewable tablet (4 tabs)] Route: PO; mlb1 08:23 Drug: Nitrostat 0.4 mg [Nitrostat 0.4 mg sublingual tablet (1 tabs)] Route: Sublingual; mlb1 08:30 Follow up: BP 116 / 56; Pulse 66 bpm; Pain 0/10 Adult mlb1 08:29 Drug: morphine 2 mg [morphine 2 mg/mL intravenous cartridge (1 mL)] Route: IVP; Site: mlb1 right antecubital; 08:29 Drug: Ondansetron 4 mg [ondansetron HCl 2 mg/mL intravenous solution (2 mL)] Route: mlb1 IVP; Site: right antecubital; 08:41 Drug: Nitro-Bid 1 inches [Nitro-Bid 2 % transdermal ointment (1 inches)] Route: mlb1 Transdermal; Site: anterior chest wall; 09:21 Drug: Plavix - Clopidogrel 300 mg [clopidogrel 75 mg tablet (4 tabs)] Route: PO; mlb1 09:22 Drug: heparin (Thrombolytic Protocol, 60 units/kg)) 2776.2 units [heparin (porcine) mlb1 5,000 unit/mL injection solution (0.555 mL)] {Co-Signature: hs1 (Johnna Landis RN).} Route: IVP; Site: right antecubital; 09:22 Drug: heparin (Thrombolytic Protocol, 12 units/kg/hr)) 37006 units [heparin (porcine) mlb1 25,000 unit/250 mL (100 unit/mL) in dextrose 5 % IV] {Co-Signature: hs1 (Johnna Landis RN).} Route: IV; Rate: 12 units/kg/hr; Site: right antecubital; Signatures: Dispatcher [employer] Jacquelyn Vieira MD MD sd1 Kusum Taylor, Reg Reg gb Angel Ruggiero RN RN mlb1 Za Cedeño RN RN [email or web address] Nestor Jones Jennalee jp5 Johnna Landis RN hs1 The chart was reviewed and I authenticate all verbal orders and agree with the evaluation and treatment provided.Attachments: 09:04 [facility] Payment Agreement jp5 14:32 T-Sheet-- Draft Copy gb 14:32 ECG/EKG gb Chart Complete MTDD
== END 2016-12-10 10:24 | disposition short-term general hospital (02) ==
LOC: M ED 08:03
DX: I20.0 Unstable angina (principal); I10 Essential (primary) hypertension; E78.00 Pure hypercholesterolemia, unspecified; I25.2 Old myocardial infarction; Z79.82 Long term (current) use of aspirin; Z79.899 Other long term (current) drug therapy
CPT/HCPCS: 36415; 71010; 80048; 82550; 82553; 83880; 84484; 85025; 85610; 93005; 93041; 96374; 96375; 99285; J2405

== ENCOUNTER → 2018-05-12 | Outpatient (REF) | payer MEDICARE, OTHER ==
[2018-05-13 13:19] LABS: FERRITIN 13 NG/ML (8-252); IRON (FE) 77 UG/DL (50-170); PERCENT SATURATION 20.5 % (13.2-45.0); TOTAL IRON BINDING CAPACITY 376 UG/DL (250-450)
== END ==
LOC: M LAB REF 11:46
DX: D64.9 Anemia, unspecified (principal)
CPT/HCPCS: 83550

== ENCOUNTER 2018-06-04 08:19 | Day surgery (SDC) | payer MEDICARE, OTHER ==
[2018-06-04] MEDS: TROPICAMIDE 1% OPHTH SOLN 2ML OD (09:21)
[2018-06-04] MEDS: PHENYLEPHRINE 2.5% OPHTH SOL 2ML OD (09:21)
[2018-06-04] MEDS: OFLOXACIN 0.3 % (OCUFLOX) OPTH SOL 5ML OD (09:21)
[2018-06-04] MEDS: PROPARACAINE 0.5% OPHTH SOL 15ML OD (09:22)
[2018-06-04] MEDS ORDERED: fentaNYL 100 MCG/2 ML INJECTION (J3010) As Ordered (09:34)
[2018-06-04] MEDS ORDERED: MIDAZOLAM INJ 2 MG/2 ML VIAL (J2250) As Ordered (09:35)
[2018-06-04] MEDS: BALANCED SALT IRRIGATION SOLUTION 500ML BAG (FOR OR EYE MACHINE) As Ordered (10:04)
[2018-06-04] MEDS: POVIDONE-IODINE 5% OPHTH PREP SOL 30ML As Ordered (10:04)
[2018-06-04] MEDS: DUOVISC (0.50ML VISCOAT/0.55ML PROVISC) OPHTH KIT As Ordered (10:05)
[2018-06-04] MEDS: LIDOCAINE 0.75%/EPINEPHRINE 0.025% IN BSS 1ML SYR INTRACAMERAL (OR ONLY) As Ordered (10:05)
[2018-06-04] MEDS: CEFUROXIME 1MG/0.1ML INTRACAMERAL INJ As Ordered (10:05)
== END 2018-06-04 11:05 | disposition home or self-care (01) ==
LOC: M SDC 08:19
DX: H25.11 Age-related nuclear cataract, right eye (principal); I10 Essential (primary) hypertension; I25.10 Atherosclerotic heart disease of native coronary artery without angina pectoris; I25.2 Old myocardial infarction; E78.00 Pure hypercholesterolemia, unspecified; K21.9 Gastro-esophageal reflux disease without esophagitis; R23.3 Spontaneous ecchymoses; Z79.899 Other long term (current) drug therapy; Z79.82 Long term (current) use of aspirin; Z95.5 Presence of coronary angioplasty implant and graft; Z78.0 Asymptomatic menopausal state
CPT/HCPCS: 66984

== ENCOUNTER 2018-09-07 08:05 | Day surgery (SDC) | payer MEDICARE, OTHER ==
[2018-09-07] MEDS: NS 1,000 ML IV (07:00)
[~2018-09-07 08:05] MED LIST: LIDOCAINE 2% INJ 100 MG/5 ML SDV (FOR ANES.) As Ordered; PROPOFOL 200 MG/20 ML VIAL As Ordered; SIMETHICONE 40MG/0.6ML DROPS 30ML As Ordered
== END 2018-09-07 10:29 | disposition home or self-care (01) ==
LOC: M OPP 08:05
DX: R19.5 Other fecal abnormalities (principal); K64.0 First degree hemorrhoids; K57.30 Diverticulosis of large intestine without perforation or abscess without bleeding; K22.2 Esophageal obstruction; K20.0 Eosinophilic esophagitis; Z95.5 Presence of coronary angioplasty implant and graft; I25.10 Atherosclerotic heart disease of native coronary artery without angina pectoris; I25.2 Old myocardial infarction; I10 Essential (primary) hypertension; E78.5 Hyperlipidemia, unspecified; K21.9 Gastro-esophageal reflux disease without esophagitis; R12 Heartburn; R23.3 Spontaneous ecchymoses; Z78.0 Asymptomatic menopausal state; Z95.1 Presence of aortocoronary bypass graft; Z79.82 Long term (current) use of aspirin; Z79.899 Other long term (current) drug therapy
CPT/HCPCS: 45378

== ENCOUNTER 2018-11-29 11:51 | Emergency (ER) | payer MEDICARE, OTHER ==
[~2018-11-29] VITALS: Ht 149.9 cm; Wt 47.3 kg
[2018-11-29 11:51] VITALS: BP 201/84
[~2018-11-29 11:51] MED LIST changes: +ASPI1TAB PO; +ATOR40TA75 PO; +CALTCHW5 PO; +CARV6.25 PO; +CLOP75TA2 PO; +FERR325T3 PO; +FOSI40TA2 PO; -LIDOCAINE 2% INJ 100 MG/5 ML SDV (FOR ANES.) As Ordered; +LISI40TA PO; +MULT1TAB10 PO; +PANT20TA2 PO; -PROPOFOL 200 MG/20 ML VIAL As Ordered; +SENN8.6T17 PO; -SIMETHICONE 40MG/0.6ML DROPS 30ML As Ordered
[2018-11-29] MEDS ORDERED: LIDOCAINE 2% MDV 20 ML VIAL As Ordered ONE (12:45)
[2018-11-29] MEDS ORDERED: LIDOCAINE 2% MDV 20 ML VIAL SC ONE (12:45)
[2018-11-29] MEDS ORDERED: ADACEL/BOOSTRIX VACCINE (DIPHTH/PERTUSS/ACELL/TETANUS)0.5ML SYR (90715) IM ONE (13:15)
== END 2018-11-29 13:27 | disposition home or self-care (01) ==
LOC: M ED 11:51
DX: S61.304A Unspecified open wound of right ring finger with damage to nail, initial encounter (principal); W26.8XXA Contact with other sharp object(s), not elsewhere classified, initial encounter; Y92.010 Kitchen of single-family (private) house as the place of occurrence of the external cause; I10 Essential (primary) hypertension; Z79.899 Other long term (current) drug therapy; Z79.82 Long term (current) use of aspirin

== ENCOUNTER → 2022-02-27 | Outpatient (CLI) | payer MEDICARE, OTHER ==
[~2022-02-27] MED LIST changes: -ASPI1TAB PO; +ASPI81TA26 PO; -FOSI40TA2 PO; +FOSI40TA59 PO; -LISI40TA PO; +LISI40TA4 PO; -PANT20TA2 PO; +PANT20TA6 PO
== END ==
LOC: M WHC 08:30
PROVIDERS: ATTEND Registered Nurse
DX: Z12.31 Encounter for screening mammogram for malignant neoplasm of breast (principal); Z13.820 Encounter for screening for osteoporosis; M85.851 Other specified disorders of bone density and structure, right thigh; M85.852 Other specified disorders of bone density and structure, left thigh

== ENCOUNTER → 2023-04-11 | Outpatient (CLI) | payer MEDICARE, OTHER | LOC: M WHC 12:28 | PROVIDERS: ATTEND Physician Assistant Medical | DX: Z12.31 Encounter for screening mammogram for malignant neoplasm of breast (principal) ==

== ENCOUNTER → 2023-12-19 | Outpatient (REF) | payer MEDICARE, OTHER ==
[2023-12-19 14:23] LABS: PERCENT SATURATION 12.5 % (13.2-45.0)
== END ==
LOC: M LAB REF 12:30
PROVIDERS: ATTEND Internal Medicine
DX: D50.9 Iron deficiency anemia, unspecified (principal)

== ENCOUNTER 2024-01-03 08:08 | Emergency (ER) | payer MEDICARE, OTHER ==
[~2024-01-03] VITALS: Ht 144.8 cm; Wt 35.1 kg
[2024-01-03 08:08] VITALS: BP 123/55; O2SAT 97
[2024-01-03] MEDS: NS 500 ML IV ONE (08:40)
[2024-01-03 09:42] LABS: BASO % 0.2 % (0.0-1.0); EOS # 0.1 10^3/uL (0.0-0.5); EOS % 1.4 % (0.0-3.0); HEMATOCRIT 29.8 % (36.0-47.0); HEMOGLOBIN 9.3 g/dl (12.0-15.5); LYMPH # 1.3 10^3/uL (1.5-5.0); LYMPH % 15.8 % (24.0-44.0); MEAN CORPUSCULAR HEMOGLOBIN 27.5 pg (27.0-33.0); MEAN CORPUSCULAR HGB CONC 31.2 g/dl (32.0-36.5); MEAN CORPUSCULAR VOLUME 88.2 fl (80.0-96.0); MONO # 0.6 10^3/uL (0.0-0.8); MONO % 7.1 % (2.0-8.0); NEUTROPHILS # 6.3 10^3/uL (1.5-8.5); NEUTROPHILS % 75.1 % (36.0-66.0); PLATELET COUNT, AUTOMATED 294 10^3/uL (150-450); RED BLOOD COUNT 3.38 10^6/uL (4.00-5.40); WHITE BLOOD COUNT 8.4 10^3/uL (4.0-10.0)
[2024-01-03 10:03] LABS: ETHYL ALCOHOL (ETHANOL) < 0.003 % (0.000-0.010); LIPASE 37 U/L (12-53)
[2024-01-03 10:05] LABS: AMYLASE 83 U/L (30-118); CPK CREATINE PHOSPHOKINASE 99 U/L (34-145)
[2024-01-03 10:06] LABS: ALBUMIN 2.9 G/DL (3.2-5.2); ALKALINE PHOSPHATASE 89 U/L (46-116); ALT/SGPT 12 U/L (7.0-40); AST/SGOT 16 U/L (<34); BILIRUBIN,DIRECT 0.2 MG/DL (<0.4); BILIRUBIN,TOTAL 0.4 MG/DL (0.3-1.2); BLOOD UREA NITROGEN 33 MG/DL (9-23); CALCIUM LEVEL 8.9 MG/DL (8.3-10.6); CARBON DIOXIDE LEVEL 27 MMOL/L (20-31); CHLORIDE LEVEL 106 MMOL/L (98-107); CREATININE FOR GFR 0.73 MG/DL (0.55-1.30); GLOMERULAR FILTRATION RATE > 60.0 (>32); GLUCOSE, FASTING 95 MG/DL (74-106); SODIUM LEVEL 140 MMOL/L (136-145); TOTAL PROTEIN 5.7 G/DL (5.7-8.2)
[2024-01-03 10:08] LABS: CK-MB VALUE MASS 1.3 NG/ML (<3.6)
[2024-01-03 10:09] LABS: CK-MB VALUE MASS < 1.0 NG/ML (<3.6); MB/CK RELATIVE INDEX 1.01 (< OR =4)
[2024-01-03 10:12] LABS: MB/CK RELATIVE INDEX 1.1 (< OR =4)
[2024-01-03 10:34] LABS: HEMATOCRIT 26.9 % (36.0-47.0); HEMOGLOBIN 8.3 g/dl (12.0-15.5); MEAN CORPUSCULAR HEMOGLOBIN 27.1 pg (27.0-33.0); MEAN CORPUSCULAR HGB CONC 30.9 g/dl (32.0-36.5); MEAN CORPUSCULAR VOLUME 87.9 fl (80.0-96.0); PLATELET COUNT, AUTOMATED 244 10^3/uL (150-450); RED BLOOD COUNT 3.06 10^6/uL (4.00-5.40); WHITE BLOOD COUNT 4.9 10^3/uL (4.0-10.0)
[2024-01-03 10:35] LABS: RSV AMPLIFICATION NEGATIVE (NEGATIVE)
[2024-01-03 10:53] LABS: INR 1.08; PARTIAL THROMBOPLASTIN TIME 21.6 SECONDS (24.8-34.2); PROTHROMBIN TIME 13.7 SECONDS (12.5-14.5)
[2024-01-03] MEDS: BOOSTRIX VACCINE (TETANUS/DIPHTH/ACEL. PERTUSSIS) 0.5ML SYR IM.IMMUN ONE (11:34)
[2024-01-03] MEDS: TRANEXAMIC ACID XX STA (12:16)
[2024-01-03] MEDS: D5W XX STA (12:16)
[2024-01-03] MEDS ORDERED: LIDOCAINE W/EPINEPHRINE 1% 20ML VIAL As Ordered ONE (13:00)
[2024-01-03 16:00] VITALS: TEMP 96.8
== END 2024-01-03 14:30 | disposition home or self-care (01) ==
LOC: M ED 08:08
DX: S09.90XA Unspecified injury of head, initial encounter (principal); S01.419A Laceration without foreign body of unspecified cheek and temporomandibular area, initial encounter; W01.119A Fall on same level from slipping, tripping and stumbling with subsequent striking against unspecified sharp object, initial encounter; I49.1 Atrial premature depolarization; F17.200 Nicotine dependence, unspecified, uncomplicated; F10.10 Alcohol abuse, uncomplicated; Z79.01 Long term (current) use of anticoagulants; Y92.009 Unspecified place in unspecified non-institutional (private) residence as the place of occurrence of the external cause; Y93.89 Activity, other specified; Y99.9 Unspecified external cause status; Z79.82 Long term (current) use of aspirin; Z79.02 Long term (current) use of antithrombotics/antiplatelets; Z79.899 Other long term (current) drug therapy; Z23 Encounter for immunization

== ENCOUNTER → 2024-02-04 | Outpatient (CLI) | payer MEDICARE, OTHER | LOC: M PLAIMG 15:22 | PROVIDERS: ATTEND Internal Medicine | DX: R93.2 Abnormal findings on diagnostic imaging of liver and biliary tract (principal); K80.20 Calculus of gallbladder without cholecystitis without obstruction ==

== ENCOUNTER → 2024-06-18 | Outpatient (CLI) | payer MEDICARE, OTHER ==
[2024-06-18 14:04] LABS: PERCENT SATURATION 31.1 % (13.2-45.0)
[2024-06-18 14:08] LABS: FERRITIN 41.6 NG/ML (7.3-270.7)
== END ==
LOC: M WUC 11:09
PROVIDERS: ATTEND Internal Medicine
DX: D50.9 Iron deficiency anemia, unspecified (principal); M25.551 Pain in right hip; M16.11 Unilateral primary osteoarthritis, right hip

== ENCOUNTER → 2024-11-12 | Outpatient (CLI) | payer MEDICARE, OTHER | LOC: M WHC 14:17 | PROVIDERS: ATTEND Internal Medicine | DX: Z12.31 Encounter for screening mammogram for malignant neoplasm of breast (principal); Z13.820 Encounter for screening for osteoporosis; M81.0 Age-related osteoporosis without current pathological fracture; R92.323 Mammographic fibroglandular density, bilateral breasts ==

== ENCOUNTER → 2024-12-20 | Outpatient (REF) | payer MEDICARE, OTHER ==
[2024-12-20 17:52] LABS: PERCENT SATURATION 20.1 % (13.2-45.0)
[2024-12-20 17:55] LABS: FERRITIN 58.8 NG/ML (7.3-270.7)
== END ==
LOC: M LAB REF 16:38
PROVIDERS: ATTEND Internal Medicine
DX: D50.9 Iron deficiency anemia, unspecified (principal)

== ENCOUNTER → 2025-06-20 | Outpatient (REF) | payer MEDICARE, OTHER ==
[~2025-06-20] MED LIST changes: +LISI40TA10 PO; -LISI40TA4 PO
[2025-06-20 15:04] LABS: IRON (FE) 77.0 UG/DL (50-170); PERCENT SATURATION 21.9 % (13.2-45.0)
== END ==
LOC: M LAB REF 14:14
PROVIDERS: ATTEND Internal Medicine
DX: D50.9 Iron deficiency anemia, unspecified (principal)